=== PATIENT | female | born 1960 | race Two or more races ===

== ENCOUNTER 2024-07-11 09:31 | Inpatient (IN) | payer MEDICARE, MEDICAID ==
[~2024-07-11] VITALS: Ht 154.9 cm; Wt 58.3 kg
--- NOTE | 2024-07-11 09:55 | ED.PDOC ---
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 Patients daughter reports that at home patient grabbed her chest and said "pain". Patient is non-verbal at this time and is gazing without blinking. Patients daughter reports that patients Alzhei hector's/Dementia has progressed and patient is at her baseline at this time. Patient not able to verbalize how she feels at this time. Chief Complaint: Chest Pain Time Seen by MD: 09:42 Reviewed Notes: Medications, Allergies Allergies: Coded Allergies: NO KNOWN ALLERGIES (Unverified , 07/11/24) Information Source: Relative (Child) Mode of Arrival: Ambulatory Severity: Moderate Timing: Days Duration: Since onset Prehospital treatment: None Past Medical History PAST MEDICAL HISTORY: Alzheimer, Dementia Surgical History: Denies all surgeries COFOUNDER History: Denies all COFOUNDER Hx Family History Family History: Reviewed,noncontributory to illness Social History Smoker: Non-Smoker Alcohol: Denies ETOH Use Drugs: Denies Drug Use Lives In: Home, Assisted Care Constitutional: denies: chills, diaphoresis, fatigue, fever, malaise, sweats, weakness, others EENTM: denies: blurred vision, double vision, ear bleeding, ear discharge, ear drainage, ear pain, ear ringing, eye pain, eye redness, hearing loss, mouth pain, mouth swelling, nasal discharge, nose bleeding, nose congestion, nose pain, photophobia, tearing, throat pain, throat swelling, voice changes, others Respiratory: denies: cough, hemoptysis, orthopnea, SOB at rest, shortness of breath, SOB with excertion, stridor, wheezing, others Cardiovascular: reports: chest pain; denies: dizzy spells, diaphoresis, Dyspnea on exertion, edema, irregular heart beat, left arm pain, lightheadedness, palpitations, PND, syncope, others Gastrointestinal: denies: abdomen distended, abdominal pain, blood streaked bowels, constipated, diarrhea, dysphagia, difficulty swallowing, hematemesis, melena, nausea, poor appetite, poor fluid intake, rectal bleeding, rectal pain, vomiting, others Genitourinary: denies: abnormal vagina bleeding, burning, dyspareunia, dysuria, flank pain, frequency, hematuria, incontinence, pain, , vagina discharge, urgency, others Neurological: denies: dizziness, fainting, headache, left sided numbness, left sided weakness, numbness, paresthesia, pre-existing deficit, right sided numbness, right sided weakness, seizure, speech problems, tingling, tremors, weakness, others Musculoskeletal: denies: back pain, gout, joint pain, joint swelling, muscle pain, muscle stiffness, neck pain, others Integumetry: denies: bruises, change in color, change in hair/nails, dryness, laceration, lesions, lumps, rash, wounds, others Allergic/Immunocompromised: denies: Difficulty Healing, Frequent Infections, Hives, Itching, others Hematologic/Lymphatic: denies: anemia, blood clots, easy bleeding, easy bruising, swollen glands, others Endocrine: denies: excessive hunger, excessive sweating, excessive thirst, excessive urination, flushing, intolerance to cold, intolerance to heat, unexplained weight gain, unexplained weight loss, others Psychiatric: denies: anxiety, bipolar disorder, depression, hopeless, panic disorder, schizophrenia, sleepless, suicidal, others Unable to Obtain due to: Altered Mental Status, Dementia All Other Systems: Reviewed and Negative Physical Exam General Appearance: Moderate Distress, Normal HEENT: Normal ENT Inspection, Pharynx Normal, TMs Normal Neck: Full Range of Motion, Non-Tender, Normal, Normal Inspection Respiratory: Chest Non-Tender, Lungs Clear, No Accessory Muscle Use, No Respiratory Distress, Normal Breath Sounds Cardiovascular: No Edema, No JVD, No Murmur, No Gallop, Normal Peripheral Pulses, Regular Rate/Rhythm Breast Exam: Deferred Gastrointestinal: No Organomegaly, Non Tender, No Pulsatile Mass, Normal Bowel Sounds, Soft Genitalia: Deferred Pelvic: Deferred Rectal: Deferred Extremities: No calf tenderness, Normal capillary refill, Normal inspection, Normal range of motion, Non-tender, No pedal edema Musculoskeletal : Apperance: Normal Neurologic: Depressed Affect, Disoriented Cerebellar Function: Normal Reflexes: Normal Skin: Dry, Normal Color, Warm Peripheral Pulses: 3+ Radial (R), 3+ Radial (L) Lymphatic: No Adenopathy Was a procedure done? Was a procedure done?: No Differential Dx Considerations may include: Dementia Electrolyte imbalance X-Ray, Labs, Meds, VS Vital Signs Date Time Temp Pulse Resp B/P (MAP) Pulse Ox O2 Delivery O2 Flow Rate FiO2 07/11/24 11:22 97.7 68 16 101/41 (61) 95 97.7 07/11/24 11:22 68 16 95 Room Air 07/11/24 09:49 97.7 83 19 122/70 (87) 98 07/11/24 09:38 79 Lab Test 07/11/24 10:53 07/11/24 09:48 Range/Units Troponin I High Sensitivity Pending < 3 L </=34 ng/L White Blood Count 4.0 L 4.4-10.8 10^3/uL Red Blood Count 4.82 4.0-5.20 10^6/uL Hemoglobin 14.1 12.2-16.2 g/dL Hematocrit 42.4 36.0-46.0 % Mean Corpuscular Volume 88.0 80.0-100.0 fL Mean Corpuscular Hemoglobin 29.3 28.0-32.0 pg Mean Corpuscular Hemoglobin Concent 33.3 32.0-36.0 g/dL Red Cell Distribution Width 13.4 11.8-14.3 % Platelet Count 250 140-450 10^3/uL Mean Platelet Volume 7.6 6.9-10.8 fL Neutrophils (%) (Auto) 58.2 37.0-80.0 % Lymphocytes (%) (Auto) 33.9 10.0-50.0 % Monocytes (%) (Auto) 7.0 0.0-12.0 % Eosinophils (%) (Auto) 0.7 0.0-7.0 % Basophils (%) (Auto) 0.2 0.0-2.0 % Neutrophils # (Auto) 2.3 1.6-8.6 10 ^3/uL Lymphocytes # (Auto) 1.3 0.4-5.4 10 ^3/uL Monocytes # (Auto) 0.3 0-1.3 10 ^3/uL Eosinophils # (Auto) 0 0-0.8 10 ^3/uL Basophils # (Auto) 0 0-0.2 10 ^3/uL Nucleated Red Blood Cells 0.2 % Sodium Level Pending Potassium Level Pending Chloride Level Pending Carbon Dioxide Level Pending Anion Gap Pending Blood Urea Nitrogen Pending Creatinine Pending Glomerular Filtration Rate Calc Pending BUN/Creatinine Ratio Pending Serum Glucose Pending Calcium Level Pending Magnesium Level Pending Total Bilirubin Pending Aspartate Amino Transferase (AST) Pending Alanine Aminotransferase (ALT) Pending Alkaline Phosphatase Pending B-Type Natriuretic Peptide Pending Total Protein Pending Albumin Pending Patient disoriented. Unable to express herself. Vitals stable. Moving all extremities. Family at bedside. Late onset dementia. Came in because of chest pain. EKG does not show any acute changes. Possibly will need echocardiogram. Possibly will need further workup of the dementia. Explained to the family. Continue cardiac monitoring. Chest x-ray reviewed does not show any acute changes. Time of 1ST Reevaluation: 10:12 Reevaluation 1ST: Unchanged Patient Education/Counseling: Pt Unresponsive (SECONDARY TO ALZHEIMER'S ) Family Education/Counseling: Diagnosis, Treatment, Prognosis, Need For Follow Up Departure 1 Departure Time of Disposition: 11:25 Impression: Primary Impression: Metabolic encephalopathy Additional Impressions: Chest pain of unknown etiology Dementia Qualified Codes: F03.B0 - Unspecified dementia, moderate, without behavioral disturbance, psychotic disturbance, mood disturbance, and anxiety Disposition: ADMITTED INPATIENT Admit to: Med Surg Condition: Guarded Critical Care Note Critical Care Time?: No Stability Stability form required: No Heart Score Heart Score: Heart Score Response (Comments) Value History Slightly Suspicious 0 EKG Normal 0 Age >65 2 Risk Factors 1 or 2 risk factors 1 Troponin Normal limit 0 Total 3 I personally scribed for EUGENE SULLIVAN MD ([email or web address]) on 07/11/24 at 09:55. Electronically submitted by Boris Shaw ([email or web address]). EUGENE SULLIVAN MD Jul 11, 2024 09:55
--- NOTE | 2024-07-11 10:09 | DVH ---
EXAM: XY CHEST PORTABLE Indication: CP Technique: Single frontal view of the chest was obtained Comparison: None FINDINGS: Lines and Tubes: None Lungs: No focal consolidation. Pleura: No effusion. No pneumothorax. Cardiomediastinal contours: Unremarkable Bones: No acute osseous abnormality. IMPRESSION: No acute cardiopulmonary disease.
[2024-07-11 10:40] LABS: Basophils # (auto) 0 10 ^3/uL (0-0.2); Basophils % (auto) 0.2 % (0.0-2.0); Eosinophils # (auto) 0 10 ^3/uL (0-0.8); Eosinophils % (auto) 0.7 % (0.0-7.0); Hematocrit 42.4 % (36.0-46.0); Hemoglobin 14.1 g/dL (12.2-16.2); Lymphocytes # (auto) 1.3 10 ^3/uL (0.4-5.4); Lymphocytes % (auto) 33.9 % (10.0-50.0); Mean Corpuscular Hemoglobin 29.3 pg (28.0-32.0); Mean Corpuscular Hgb Conc. 33.3 g/dL (32.0-36.0); Monocytes # (auto) 0.3 10 ^3/uL (0-1.3); Neutrophils # (auto) 2.3 10 ^3/uL (1.6-8.6); Neutrophils % (auto) 58.2 % (37.0-80.0); Nucleated Red Blood Cells % 0.2 %; Platelet Count (auto) 250 10^3/uL (140-450); Red Blood Cells 4.82 10^6/uL (4.0-5.20); Red Cell Distribution Width 13.4 % (11.8-14.3)
[2024-07-11] MEDS: ASPirin 325 MG TAB PO ONE (11:41)
[2024-07-11 11:43] VITALS: PULSE 68; RESP 16; O2SAT 95
[2024-07-11 12:30] LABS: Anion Gap 11 (5-15)
[2024-07-11] MEDS ORDERED: DOCUSATE SOD 100 MG CAP PO PRN (12:30)
[2024-07-11] MEDS ORDERED: ONDANSETRON HCL 4 MG/2 ML VIAL IV PRN (12:30)
[2024-07-11] MEDS ORDERED: MORPHINE SULFATE INJ 2 MG/ml SYRG IV PRN (12:30)
[2024-07-11] MEDS ORDERED: HYDROcodone-ACET 5/325MG TAB PO PRN (12:30)
[2024-07-11] MEDS ORDERED: NITROGLYCERIN 0.4 MG SL TAB SL PRN (12:30)
[2024-07-11] MEDS ORDERED: ACETAMINOPHEN 325 MG TAB PO PRN (12:30)
[2024-07-11 12:36] LABS: BUN/Creatinine Ratio 28.6 (10.0-20.0); Blood Urea Nitrogen 18 mg/dL (9-23); Calcium 10.1 mg/dL (8.7-10.4); Carbon Dioxide 24 mmol/L (20-31); Chloride 108 mmol/L (98-107); Glucose 118 mg/dL (74-106); Potassium 3.9 mmol/L (3.5-5.1); Sodium 143 mmol/L (136-145)
[2024-07-11 12:42] LABS: Alanine Aminotransferase 18 U/L (7-40); Albumin 4.2 g/dL (3.2-4.8); Alkaline Phosphatase 81 U/L (46-116); Aspartate Aminotransferase 10 U/L (13-40); Bilirubin, Total 0.5 mg/dL (0.2-1.0)
--- NOTE | 2024-07-11 13:06 | DVHHP2 ---
History of Present Illness Reason for Visit: Chest pain History of Present Illness Lolis Tao is a 64-year-old female with past medical history of Alzheimer dementia, who does not take any medications, that came in for chest pain. Per patient's son, she lives with him and his family. She is mostly non- verbal, but can make some of her needs known. She woke up this morning and called him and pain pointing to her chest. At the time of assessment she is sitting in a wheelchair, with no S/S of pain, discomfort, or shortness of breath. When Son asks her if she is having any pain she said no. Son states she does follow with a neurologist, but she has never been seen by a nursing admin. Patient will be admitted for cardiology to see and work up. 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 Past Surgical History: None Smoke: No ALCOHOL: none Drugs: None Lives: with Family Domestic Violence: Neg Review of Systems Constitutional: No: Fever, Chills, Sweats, Weakness, Malaise, Other Eyes: No: Pain, Vision change, Conjunctivae inflammation, Eyelid inflammation, Other, Redness ENT: No: Ear pain, Ear discharge, Nose pain, Nose discharge, Nose congestion, Mouth pain, Mouth swelling, Throat pain, Throat swelling, Other Respiratory: No: Cough, Dry, Shortness of breath, SOB with excertion, Wheezing, Hemoptysis, Pleuritic Pain, Sputum, Wheezing, Other Cardiovascular: Chest Pain; No: Palpitations, Orthopnea, Paroxysmal Noc. Dyspnea, Edema, Lt Headedness, Other Gastrointestinal: No: Nausea, Vomiting, Abdominal Pain, Diarrhea, Constipation, Melena, Hematochezia, Other Genitourinary: No Dysuria, No Frequency, No Incontinence, No Hematuria, No Retention, No Other Musculoskeletal: No: other, neck pain, shoulder pain, arm pain, back pain, hand pain, leg pain, foot pain Skin: No: Rash, Lesions, Jaundice, Bruising, Other Neurological: No: Weakness, Numbness, Incoordination, Change in speech, Confusion, Seizures, Other Allergies: Coded Allergies: NO KNOWN ALLERGIES (Unverified , 07/11/24) Medications Current Medications Medications Dose Ordered Sig/Gabrielle Route Start Time Stop Time Status Last Admin Dose Admin Sodium Chloride 10 ml Q8HR IV 07/11/24 14:00 Acetaminophen/ Hydrocodone Bitart 1 tab Q4HP PRN PO 07/11/24 12:30 Ondansetron HCl 4 mg Q4HP PRN IV 07/11/24 12:30 Docusate Sodium 100 mg BIDPRN PRN PO 07/11/24 12:30 Enoxaparin Sodium 40 mg DAILY SC 07/12/24 10:00 Acetaminophen 650 mg Q6HP PRN PO 07/11/24 12:30 Nitroglycerin 0.4 mg Q5MINP PRN SL 07/11/24 12:30 Morphine Sulfate 2 mg Q30M PRN IV 07/11/24 12:30 Aspirin 81 mg DAILY PO 07/12/24 10:00 Atorvastatin Calcium 10 mg HS PO 07/11/24 22:00 Exam Vital Signs Vital Signs Date Time Temp Pulse Resp B/P (MAP) Pulse Ox O2 Delivery O2 Flow Rate FiO2 07/11/24 11:43 68 16 95 Room Air* 0 21 07/11/24 11:22 97.7 101/41 (61) 97.7 General Appearance: Alert, Cooperative, Other (Mostly non-verbal, H/O Alzheimer) HEENT: Atraumatic, PERRLA Respiratory: Clear to auscultation, Normal air movement Cardiovascular: Regular rate, Normal S1, Normal S2, No murmurs Abdominal: Normal bowel sounds, Soft, No tenderness Extremities: No clubbing, No cyanosis, No edema, Normal pulses Skin: No rashes, No breakdown, No significant lesion Neuro: Normal gait, Other (Mostly non-verbal, H/O Alzheimer) Labs/Xrays Labs Test 07/11/24 10:53 07/11/24 09:48 Range/Units Troponin I High Sensitivity < 3 L </=34 ng/L White Blood Count 4.0 L 4.4-10.8 10^3/uL Red Blood Count 4.82 4.0-5.20 10^6/uL Hemoglobin 14.1 12.2-16.2 g/dL Hematocrit 42.4 36.0-46.0 % Mean Corpuscular Volume 88.0 80.0-100.0 fL Mean Corpuscular Hemoglobin 29.3 28.0-32.0 pg Mean Corpuscular Hemoglobin Concent 33.3 32.0-36.0 g/dL Red Cell Distribution Width 13.4 11.8-14.3 % Platelet Count 250 140-450 10^3/uL Mean Platelet Volume 7.6 6.9-10.8 fL Neutrophils (%) (Auto) 58.2 37.0-80.0 % Lymphocytes (%) (Auto) 33.9 10.0-50.0 % Monocytes (%) (Auto) 7.0 0.0-12.0 % Eosinophils (%) (Auto) 0.7 0.0-7.0 % Basophils (%) (Auto) 0.2 0.0-2.0 % Neutrophils # (Auto) 2.3 1.6-8.6 10 ^3/uL Lymphocytes # (Auto) 1.3 0.4-5.4 10 ^3/uL Monocytes # (Auto) 0.3 0-1.3 10 ^3/uL Eosinophils # (Auto) 0 0-0.8 10 ^3/uL Basophils # (Auto) 0 0-0.2 10 ^3/uL Nucleated Red Blood Cells 0.2 % Sodium Level 143 136-145 mmol/L Potassium Level 3.9 3.5-5.1 mmol/L Chloride Level 108 H 98-107 mmol/L Carbon Dioxide Level 24 20-31 mmol/L Anion Gap 11 5-15 Blood Urea Nitrogen 18 9-23 mg/dL Creatinine 0.63 0.550-1.02 mg/dL Glomerular Filtration Rate Calc 98 >90 mL/min BUN/Creatinine Ratio 28.6 H 10.0-20.0 Serum Glucose 118 H 74-106 mg/dL Calcium Level 10.1 8.7-10.4 mg/dL Magnesium Level 2.0 1.6-2.6 mg/dL Total Bilirubin 0.5 0.2-1.0 mg/dL Aspartate Amino Transferase (AST) 10 L 13-40 U/L Alanine Aminotransferase (ALT) 18 7-40 U/L Alkaline Phosphatase 81 46-116 U/L B-Type Natriuretic Peptide 6.46 0-100 pg/mL Total Protein 6.0 5.7-8.2 g/dL Albumin 4.2 3.2-4.8 g/dL EXAM: XY CHEST PORTABLE FINDINGS: Lines and Tubes: None Lungs: No focal consolidation. Pleura: No effusion. No pneumothorax. Cardiomediastinal contours: Unremarkable Bones: No acute osseous abnormality. IMPRESSION: No acute cardiopulmonary disease. Assessment/Plan Assessment/Plan Assessment: R/O ACS, Alzheimer, Plan: Admit to Tele, Cardiology consult, ECHO, ACS protocol, Lipid panel, Plan discussed with: Patient, Son My Orders Orders - HUSSEIN COURTNEY Procedure Category Date Status Time Admit ADMIT 07/11/24 Transmitted 12:23 Code Status CODE 07/11/24 Transmitted 12:23 2 Gm Sodium Diet DIET 07/11/24 Transmitted Lunch Sodium Chloride Lock PHA 07/11/24 In Process (Saline Lock Ns) 14:00 Hydrocodone-Acet PHA 07/11/24 In Process 5/325mg Tab ([place] 12:30 Ondansetron Hcl PHA 07/11/24 In Process (Zofran) 12:30 Docusate Sodium PHA 07/11/24 In Process Capsule (Colace 12:30 Enoxaparin Sodium PHA 07/12/24 In Process (Lovenox) 10:00 Complete Blood Count LAB 07/12/24 Verified 04:00 Comprehensive LAB 07/12/24 Verified Metabolic Panel 04:00 Echo 2d Mode Cardiac US 07/11/24 Logged DOP 12:23 Condition: Serious DAGO 07/11/24 In Process 12:23 Acetaminophen Tablet PHA 07/11/24 In Process (Tylenol Tablet) 12:30 Nitroglycerin PHA 07/11/24 In Process Sublingual (Ntrostat 12:30 Morphine Sulfate PHA 07/11/24 In Process Injection 12:30 Stat Ekg For Chest DAGO 07/11/24 In Process Pain 12:23 Notify Md Of Changes DAGO 07/11/24 In Process From Base 12:23 Budget Record Clerk For DAGO 07/11/24 In Process 24 Hours 12:23 Emergency Dysrhythmia DAGO 07/11/24 In Process Protocol 12:23 Rhythm Strips Once DAGO 07/11/24 In Process Every Shift 12:23 Oxygen By Nasal RT 07/11/24 Transmitted Cannula 12:23 * Cardiology Consult CONS 07/11/24 Transmitted 12:23 Aspirin Tablet PHA 07/12/24 In Process 10:00 Atorvastatin (Lipitor) PHA 07/11/24 In Process 22:00 Date of Service: Jul 11, 2024 Billing Provider: HUSSEIN COURTNEY Common Visit Codes: [id number] INP/OBS CARE (MOD) HUSSEIN COURTNEY Jul 11, 2024 13:06
--- NOTE | 2024-07-11 14:10 | DVHINCON2 ---
DESTINI SANTANA [facility] 07/11/24 1410: Date Seen: Jul 11, 2024 Referring Physician VITA Landin Reason for Consultation Chest pain History of Present Illness This is a 64-year-old female patient who presents to the emergency room with chief complaint of chest pain. The patient has advanced dementia and is only alert to self at time of assessment. The patient's son and [id number] are at patient's side in ER hallway. Per the patient's son, the patient woke up at approximately 7:00 a.m. to use the restroom. He was assisting her when suddenly she mentioned she was having chest pain. He states that the patient's chest pain was unprovoked, intermittent, sharp in nature, midsternal and nonradiating. He denies that she complained of any associated symptoms. At the time of assessment, when attempting to ask the patient about the chest pain, she is unable to recall. Initial twelve lead electrocardiogram reveals normal sinus rhythm without any significant ST segment changes. Initial troponin level was negative. Significant past medical history includes advanced dementia. The patient sees a neurologist and PCP in the outpatient setting. The patient's family denies any previous cardiac history. Past Medical History Past medical history reviewed. No other significant than mentioned above. Past Surgical History Denies all previous surgeries per family Family History Family history reviewed. Social History Denies the use of tobacco, alcohol or illicit drugs. Allergies: Coded Allergies: NO KNOWN ALLERGIES (Unverified , 07/11/24) Home Meds Patient does not take any prescribed home medications Current Medications Current Medications Medications (Trade) Dose Ordered Sig/Gabrielle Route PRN Reason Start Time Stop Time Status Last Admin Sodium Chloride (Saline Lock Ns) 10 ml Q8HR IV 07/11/24 14:00 Acetaminophen/ Hydrocodone Bitart ([place] 5/325MG Tab) 1 tab Q4HP PRN PO MODERATE PAIN (4-6 PAIN SCALE) 07/11/24 12:30 Ondansetron HCl (Zofran) 4 mg Q4HP PRN IV NAUSEA / VOMITING 07/11/24 12:30 Docusate Sodium (Colace Capsule) 100 mg BIDPRN PRN PO FOR CONSTIPATION 07/11/24 12:30 Enoxaparin Sodium (Lovenox) 40 mg DAILY SC 07/12/24 10:00 Acetaminophen (Tylenol Tablet) 650 mg Q6HP PRN PO PAIN SCALE 1-3 OR TEMP>100.4 07/11/24 12:30 Nitroglycerin (Ntrostat Sublingual) 0.4 mg Q5MINP PRN SL FOR CHEST PAIN 07/11/24 12:30 Morphine Sulfate 2 mg Q30M PRN IV FOR CHEST PAIN 07/11/24 12:30 Aspirin 81 mg DAILY PO 07/12/24 10:00 Atorvastatin Calcium (Lipitor) 10 mg HS PO 07/11/24 22:00 Review of Systems Constitutional: No symptom reported Ears, Nose, & Throat: No symptom reported Eyes: No symptom reported Neurological: No symptoms reported Pulmonary/Respiratory: No symptoms reported Cardiovascular: Chest pain Gastrointestinal: No symptom reported Genitourinary: No symptom reported Musculoskeletal: No symptom reported Skin: No symptom reported Psychiatric: No symptom reported Endocrine: No symptom reported Hematologic/Lymphatic: No symptom reported Vital Signs Vital Signs Date Time Temp Pulse Resp B/P (MAP) Pulse Ox O2 Delivery O2 Flow Rate FiO2 07/11/24 14:08 97.8 69 16 120/61 (80) 98 97.8 07/11/24 11:43 Room Air* 0 21 Physical Exam General Appearance: Cooperative. Well-developed. Well-nourished. No acute distre ss. Pulmonary/Respiratory: Clear, bilateral breaths sounds. Cardiovascular/Chest: Regular rate and rhythm. Peripheral Pulses: 2+ Radial (R). 2+ Radial (L). 2+ Pedal (R). 2+ Pedal (L) Abdominal Exam: Normal bowel sounds. Ankle Exam: Negative ankle edema Lower extremities: Negative lower extremity edema Neuro/Mental Status: A/OX1, confused Thoughts/Psych: Deferred Appearance: No acute distress. Skin Exam: Normal inspection. Normal color. Warm and dry. Labs/Diagnostic Data Labs Test 07/11/24 10:53 07/11/24 09:48 Range/Units Troponin I High Sensitivity < 3 L </=34 ng/L White Blood Count 4.0 L 4.4-10.8 10^3/uL Red Blood Count 4.82 4.0-5.20 10^6/uL Hemoglobin 14.1 12.2-16.2 g/dL Hematocrit 42.4 36.0-46.0 % Mean Corpuscular Volume 88.0 80.0-100.0 fL Mean Corpuscular Hemoglobin 29.3 28.0-32.0 pg Mean Corpuscular Hemoglobin Concent 33.3 32.0-36.0 g/dL Red Cell Distribution Width 13.4 11.8-14.3 % Platelet Count 250 140-450 10^3/uL Mean Platelet Volume 7.6 6.9-10.8 fL Neutrophils (%) (Auto) 58.2 37.0-80.0 % Lymphocytes (%) (Auto) 33.9 10.0-50.0 % Monocytes (%) (Auto) 7.0 0.0-12.0 % Eosinophils (%) (Auto) 0.7 0.0-7.0 % Basophils (%) (Auto) 0.2 0.0-2.0 % Neutrophils # (Auto) 2.3 1.6-8.6 10 ^3/uL Lymphocytes # (Auto) 1.3 0.4-5.4 10 ^3/uL Monocytes # (Auto) 0.3 0-1.3 10 ^3/uL Eosinophils # (Auto) 0 0-0.8 10 ^3/uL Basophils # (Auto) 0 0-0.2 10 ^3/uL Nucleated Red Blood Cells 0.2 % Sodium Level 143 136-145 mmol/L Potassium Level 3.9 3.5-5.1 mmol/L Chloride Level 108 H 98-107 mmol/L Carbon Dioxide Level 24 20-31 mmol/L Anion Gap 11 5-15 Blood Urea Nitrogen 18 9-23 mg/dL Creatinine 0.63 0.550-1.02 mg/dL Glomerular Filtration Rate Calc 98 >90 mL/min BUN/Creatinine Ratio 28.6 H 10.0-20.0 Serum Glucose 118 H 74-106 mg/dL Hemoglobin A1c 5.0 <5.7 % A1C Calcium Level 10.1 8.7-10.4 mg/dL Magnesium Level 2.0 1.6-2.6 mg/dL Total Bilirubin 0.5 0.2-1.0 mg/dL Aspartate Amino Transferase (AST) 10 L 13-40 U/L Alanine Aminotransferase (ALT) 18 7-40 U/L Alkaline Phosphatase 81 46-116 U/L B-Type Natriuretic Peptide 6.46 0-100 pg/mL Total Protein 6.0 5.7-8.2 g/dL Albumin 4.2 3.2-4.8 g/dL Assessment Chest pain, likely noncardiac Rule out structural heart disease Advanced dementia Plan/Recommendation We will continue with the following plan/recommendations (Dr. Sosa): Case reviewed and discussed with . We will proceed with obtaining a tra nsthoracic echocardiogram to evaluate cardiac function. Given the patient's clinical presentation, negative troponin level, and unremarkable twelve lead electrocardiogram, doubt ACS. The patient has advanced dementia and is unable to remember previous chest pain that is reported. At the time of assessment, the patient is able to answer simple yes or no questions. She denies any cardiac symptoms at time of assessment. In the setting of an unremarkable transthoracic echocardiogram, there is no further inpatient cardiac workup indicated at this time. Thank you for allowing us to care for this patient. Please call with any questions or concerns. Critical care time spent: 42 minutes This medical document was created using an electronic medical record system with voice recognition software and computerized dictation system. Although this document has been carefully reviewed, there might still be some phonetic and typographical errors. Occasional wrong-word or ``sound-alike substitutions may have occurred due to the inherent limitations of voice recognition software. These areas are purely typographical due to imperfections of the software programs and do not reflect any compromise in the patient's medical care. Please read the chart carefully and recognize, using context, where these substitutions have occurred. Plan discussed with: Patient NYHA Physical activity limitations: NA Date of Service: Jul 11, 2024 Billing Provider: DESTINI SANTANA Cardiology Common Codes: [id number] INP/OBS CARE (High) Cardiology Consultation Codes: [id number] CONSULT <45MIN COURTNEY SOSA MD 07/11/24 1815: Allergies: Coded Allergies: NO KNOWN ALLERGIES (Unverified , 07/11/24) Plan/Recommendation advanced dementia, ACS ruled out little we can offer stable pt fu pcp Date of Service: Jul 11, 2024 Billing Provider: COURTNEY SOSA MD Cardiology Common Codes: NOT BILLABLE DESTINI SANTANA Jul 11, 2024 14:10 COURTNEY SOSA MD Jul 11, 2024 18:15
[2024-07-11] MEDS: SODIUM CHLOR 0.9% PF (SALINE LOCK) 10ML VIAL/SYR IV SCH (14:20)
[2024-07-12] MEDS: ATORVASTATIN 20 MG TAB PO SCH (03:23)
[2024-07-12 08:23] LABS: Basophils # (auto) 0 10 ^3/uL (0-0.2); Basophils % (auto) 0.1 % (0.0-2.0); Eosinophils # (auto) 0 10 ^3/uL (0-0.8); Eosinophils % (auto) 0.9 % (0.0-7.0); Hematocrit 43.9 % (36.0-46.0); Hemoglobin 14.7 g/dL (12.2-16.2); Lymphocytes # (auto) 1.5 10 ^3/uL (0.4-5.4); Lymphocytes % (auto) 38.3 % (10.0-50.0); Mean Corpuscular Hemoglobin 29.4 pg (28.0-32.0); Mean Corpuscular Hgb Conc. 33.4 g/dL (32.0-36.0); Mean Corpuscular Volume 87.9 fL (80.0-100.0); Monocytes # (auto) 0.3 10 ^3/uL (0-1.3); Monocytes % (auto) 8.8 % (0.0-12.0); Neutrophils % (auto) 51.9 % (37.0-80.0); Nucleated Red Blood Cells % 0.1 %; Platelet Count (auto) 256 10^3/uL (140-450); Red Blood Cells 4.99 10^6/uL (4.0-5.20); Red Cell Distribution Width 13.1 % (11.8-14.3); White Blood Cell 3.8 10^3/uL (4.4-10.8)
[2024-07-12 09:14] LABS: Alanine Aminotransferase 20 U/L (7-40); Albumin 4.5 g/dL (3.2-4.8); Alkaline Phosphatase 85 U/L (46-116); Anion Gap 6 (5-15); Aspartate Aminotransferase 14 U/L (13-40); BUN/Creatinine Ratio 18.6 (10.0-20.0); Blood Urea Nitrogen 11 mg/dL (9-23); Carbon Dioxide 29 mmol/L (20-31); Chloride 104 mmol/L (98-107); Glucose 94 mg/dL (74-106); Potassium 3.9 mmol/L (3.5-5.1); Sodium 139 mmol/L (136-145)
[2024-07-12 09:15] LABS: Bilirubin, Total 0.5 mg/dL (0.2-1.0); Total Protein 6.7 g/dL (5.7-8.2)
[2024-07-12 09:16] LABS: Calcium 10.5 mg/dL (8.7-10.4)
[2024-07-12] MEDS ORDERED: ENOXAPARIN SOD 40 MG/0.4 ML SYRINGE SC SCH (10:00)
[2024-07-12] MEDS ORDERED: ASPirin 81 mg TAB PO SCH (10:00)
[2024-07-12 10:21] VITALS: BP 182/87; PULSE 66; RESP 16; TEMP 98.1; O2SAT 97
--- NOTE | 2024-07-12 14:31 | ECG ---
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
[2024-07-12 15:30] LABS: Triglycerides 67 mg/dL (< 150)
[2024-07-12 15:32] LABS: Cholesterol 166 mg/dL (< 200); HDL Cholesterol 52 mg/dL (40-59)
[2024-07-12 15:36] LABS: LDL Cholesterol 106 mg/dL (< 100)
== END 2024-07-12 11:40 | disposition left against medical advice (07) | DRG 311 ==
LOC: ER 09:31 → OVERFLOW 11:40
PROVIDERS: ADMIT Family Medicine; ATTEND Family Medicine
DX: I24.9 Acute ischemic heart disease, unspecified (principal); G30.9 Alzheimer's disease, unspecified; F02.80 Dementia in other diseases classified elsewhere, unspecified severity, without behavioral disturbance, psychotic disturbance, mood disturbance, and anxiety; Z53.29 Procedure and treatment not carried out because of patient's decision for other reasons
CPT/HCPCS: 36415; 71045; 80053; 80061; 83036; 83735; 83880; 84443; 84484; 85025; 93005; G0378